=== PATIENT | female | born 1950 | race Caucasian/White ===

== ENCOUNTER 2017-10-15 13:09 | Day surgery (SDC) | payer OTHER, SELFPAY ==
--- NOTE | 2017-10-15 | PATH_ITS ---
[facility] Accession Number: [id number] . 01 Material submitted: . PART A: MID RIGHT COLON POLYP PART B: DISTAL RIGHT COLON POLYP . 02 Diagnosis: A. Mid Right Colon Polyp, Biopsy: Tubular adenoma; negative for high-grade dysplasia. . B. Distal Right Colon Polyp, Biopsy: Superficial portion of colorectal mucosa with no diagnostic abnormality. Additional levels through the block are noncontributory. MRV/10/17/2017 . 02 Electronically signed: . Flordia Tang MD, Pathologist NPI- [id number] . 01 Gross description: . Part A: MID RIGHT COLON POLYP: Received in formalin are multiple fragment(s) of hadley, soft tissue measuring 1.0 x 0.5 x 0.3 cm in aggregate submitted entirely in 1 cassette(s) Part B: DISTAL RIGHT COLON POLYP: Received in formalin is 1 fragment(s) of hadley, soft tissue measuring 0.5 x 0.3 x 0.3 cm submitted entirely in 1 cassette(s) /CKI /CKI . 02 Pathologist provided ICD-10: K63.5 . 02 CPT . 851467, [id number] Performed at: 01 [facility] [address], [place], [place] [id number] MD Vinnie Corbett MD Phone: [phone] Performed at: 02 [facility] [address] [place], [place] [id number] MD Alton Rachel MD Phone: [phone]
[2017-10-15 13:20] VITALS: BP 143/81; PULSE 68; RESP 16; TEMP 36.6; O2SAT 100; BMI 19.7
[2017-10-15] MEDS: SODIUM CHLORIDE 0.9% 1,000 ML 200 ML IV (13:30)
--- NOTE | 2017-10-15 15:01 | PM.OP.1 ---
Operative Date/Time/Diagnoses Date of procedure: 10/15/17 Time of procedure: 15:01 Pre-op diagnosis: Screening Positive fecal immunohistochemical test Post-op diagnosis: same Procedure & Clinicians Procedure: Colonoscopy to the cecum with polypectomy x2 Same procedure as scheduled: Yes Indications: Last colonoscopy approximately 5 years ago Surgeon: Gilda Otto Anesthesia Type: Sedation (Versed 8 mg; fentanyl 175 mcg) Operative Notes Findings: 1. Excellent prep 2. 5 mm polyp just distal to the cecum and the proximal ascending colon removed with cold forceps and retained for pathology 3. 2 mm polyp in the distal ascending colon removed with cold forceps and retained for pathology 4. Mildly tortuous colon 5. Mild diverticulosis limited to the sigmoid region. Few scattered small pockets. 6. Grade 1-2 internal hemorrhoids Closure Type: not applicable Estimated Blood Loss (mL): 2 Procedure in detail: After obtaining informed consent, the patient was brought to the GI suite and placed in the left lateral decubitus position on the examination table. After placement of appropriate monitors, the patient was given incremental doses of Versed and Fentanyl until an appropriate level of sedation was achieved. A time out was held per SCOAP protocol. A digital rectal examination was performed and did not reveal any masses or obstructing lesions. The colonoscope was gently passed into the patient's anus and the entire colon navigated to the level of the cecum with minimal difficulty. Once in the cecum, the scope was withdrawn being sure to go before and beyond all mucosal folds and prominences and get an excellent examination. The findings are noted above. At the level of the rectal vault, the scope was retroflexed and the internal anal canal was examined. The scope was straightened and air aspirated from the colon. The instrument was removed from the patient's body and the procedure was concluded. The patient was allowed to awaken from sedation without difficulty and taken to the post-anesthesia care unit in good condition. Total sedation time 27 min Total withdrawal time 14 min Complications: none Condition: stable Disposition: PACU Plan for aftercare: 1. Discharge to home 2. Plan for next colonoscopy in 3 years due to the size of the most proximal polyp. 3. We will contact you with pathology results and any other recommendations.
[2017-10-15] MEDS: MIDAZOLAM 5 MG/5 ML VIAL IV (15:11)
[2017-10-15] MEDS: fentaNYL 250 MCG/5 ML INJ IV (15:12)
[2017-10-15 15:18] VITALS: BP 122/75; PULSE 71; RESP 16; TEMP 36.1; O2SAT 99
--- NOTE | 2017-10-15 15:22 | PM.HP.1 ---
History of Present Illness Date Patient Seen: 10/15/17 Time Patient Seen: 15:22 Chief complaint: [id number] Narrative: Very pleasant 66-year-old lady who is known to me from my prior practice. She had a colonoscopy about 5 years ago that was normal. She recently had fecal immunohistochemical testing that was positive for blood. For this reason, she has been referred for colonoscopy. She denies any new abdominal pain or changes in her bowel habits. Patient History Family & Social History Family History: Reviewed 10/15/17 by Gilda Otto MD Social History: household members spouse Meds Allergies Allergy/AdvReac Type Severity Reaction Status Date / Time No Known Drug Allergies Allergy Verified 10/15/17 13:20 Review of Systems Review of Systems All systems reviewed & are unremarkable except as noted in HPI and below Exam Vital Signs (past 8 hours): - 10/15/17 13:20 Temperature 98 F Pulse Rate 68 Respiratory Rate 16 Blood Pressure 143/81 H Pulse Oximetry 100 Oxygen Delivery Method Room Air Narrative Exam Narrative: Very pleasant and very healthy lady in no obvious distress HEENT: Normocephalic and atraumatic, pupils equal round react to light accommodation with anicteric sclera Lungs: Clear to auscultation bilaterally Heart: Regular rate and rhythm without murmur rub or gallop Abdomen: Soft, scaphoid, active bowel sounds. Extremities: Warm and well perfused Assessment & Plan Plan: Assessment/Plan Narrative: Very pleasant 66-year-old lady with a recent positive fecal immunohistochemical test. We discussed risks and benefits of colonoscopy the patient expressed desire to complete the procedure today.
== END 2017-10-15 15:25 | disposition home or self-care (01) ==
PROVIDERS: Visit Provider Surgery
PROC: 0DJD8ZZ Inspection of Lower Intestinal Tract, Via Natural or Artificial Opening Endoscopic (ICD-10-PCS; CPT 45378; principal; 2017-10-15 14:00)
DX: K57.30 Diverticulosis of large intestine without perforation or abscess without bleeding (principal); K64.1 Second degree hemorrhoids; D12.0 Benign neoplasm of cecum; D12.2 Benign neoplasm of ascending colon
CPT/HCPCS: 45380; 99152; 99153; J2250; J3010

== ENCOUNTER → 2023-03-02 13:50 | Outpatient (CLI) | payer OTHER, SELFPAY ==
--- NOTE | 2023-03-02 | DI.ECHO.S_ITS ---
[facility] +---------+ : : [address] : : : : [id number] : : : : Phone: [phone]+ Echocardiogram Report + + :Name: DYLAN COOPER Study Date: 03/02/2023 Height: 67 in : :[facility] ReadingLocation: Weight: 145 lb : : Gender: Female BSA: 1.8 m2 : :: 1950 Age: 72 yrs BP: 169/97 mmHg: :Reason For Study: MITRAL VALVE INSUFFICIENCY : :Ordering Physician: JIGAR LOPEZ Performed By: Yamilex Best : :Referring: JIGAR LOPEZ : + + Interpretation Summary Diastolic function could not be accurately assessed due to contradictory data. The left atrium is mildly dilated. The right ventricle is normal in size and function. There is mild mitral regurgitation. There is moderate aortic regurgitation. There is trace tricuspid regurgitation. Pulmonary artery pressures cannot be estimated because of the lack of a measurable TR jet velocity but the IVC suggests a CVP of around 3 mmHg. The ascending aorta measures 5.1 cm, indexed to BSA 2.83 cm/m^2. Recommend CTA or MRA chest and referral to CT surgery. Result discussed with ZOIE Rogers with [facility] [place]call for ordering provider. Procedure: A two-dimensional transthoracic echocardiogram with color flow and Doppler was performed. The study quality was technically adequate. There is no prior echocardiogram noted for this patient. The patient was in sinus rhythm with heart rates between 61-75 bpm during the exam. Left Ventricle: The left ventricle is normal in size and wall thickness. The ejection fraction is estimated to be 55-60%. Diastolic function could not be accurately assessed due to contradictory data. Right Ventricle: The right ventricle is normal in size and function. Atria: The left atrium is mildly dilated. Right atrial size is normal. There is no Doppler evidence for an interatrial shunt. Mitral Valve: The mitral valve is normal. There is mild mitral regurgitation. Aortic Valve: The aortic valve is trileaflet. The aortic valve opens well. There is no aortic valve stenosis. There is moderate aortic regurgitation. Tricuspid Valve: The tricuspid valve is normal in structure and function. There is trace tricuspid regurgitation. Pulmonary artery pressures cannot be estimated because of the lack of a measurable TR jet velocity but the IVC suggests a CVP of around 3 mmHg. Pulmonic Valve: The pulmonic valve leaflets are thin and pliable; valve motion is normal. There is no pulmonic valvular regurgitation. Great Vessels: The aortic root is moderately dilated. The ascending aorta is severely enlarged. The ascending aorta measures 5.1 cm, indexed to BSA 2.83 cm/m^2. Recommend CTA or MRA chest and referral to CT surgery. The IVC is of normal diameter and collapses greater than 50% with a sniff. This suggests a low right atrial pressure of 3 mm Hg. Pericardium/ Pleura There is no pericardial effusion. There is no pleural effusion. MMode/2D Measurements & Calculations LVIDd: 5.2 cm LVOT diam: 2.3 cm LVIDs: 3.6 cm Ao root diam: 4.6 cm FS: 31.5 % asc Aorta Diam: 5.0 cm EPSS: 0.94 cm Ao Arch Diam (Prox Trans): 2.5 cm IVSd: 0.88 cm LVPWd: 0.88 cm LV whitaker. diameter/BSA (cm/m^2): 3.0 LV sys. diameter/BSA (cm/m^2): 2.0 LA A2 area: 23.1 cm2 RA long axis: 5.4 cm LA A4 area: 19.7 cm2 RA area: 16.7 cm2 LA length (vol): 5.3 cm RA vol: 43.9 ml LA vol: 72.5 ml RA : 24.9 ml/m2 LA vol index: 41.1 ml/m2 IVC diam: 0.79 cm RVD1 (basal): 3.2 cm RVD2 (mid): 2.4 cm TAPSE: 2.5 cm Doppler Measurements & Calculations Ao V2 max: 152.5 cm/sec LVOT Max Nikhil: 91.2 cm/sec Ao V2 mean: 106.8 cm/sec LV V1 max P.3 mmHg Ao max P.3 mmHg LV V1 VTI: 20.8 cm Ao mean P.1 mmHg LANETTE(I,D): 2.9 cm2 Ao V2 VTI: 30.5 cm LANETTE(V,D): 2.5 cm2 sev ratio: 0.68 LANETTE indexed to BSA (cm^2/m^2): 1.6 AI P1/2t: 632.0 msec AI dec slope: 211.1 cm/sec2 MV E max nikhil: 51.4 cm/sec TR max nikhil: 209.8 cm/sec MV A max nikhil: 88.6 cm/sec TR max P.6 mmHg MV E/A: 0.58 PA V2 max: 80.2 cm/sec Med Peak E' Nikhil: 3.6 cm/sec PA V2 mean: 62.6 cm/sec E/E' med: 14.3 PA mean P.7 mmHg Lat Peak E' Nikhil: 6.0 cm/sec PA pr(Accel): 25.9 mmHg E/E' lat: 8.6 E/e' average: 11.5 MV dec time: 0.23 sec SV(LVOT): 87.4 ml Reading Physician:09:26 PM
== END ==
LOC: ECHO 13:51
PROVIDERS: PCP Physician Assistant; Referring Provider Registered Nurse; Visit Provider Registered Nurse
DX: I08.0 Rheumatic disorders of both mitral and aortic valves (principal); I77.810 Thoracic aortic ectasia; I77.89 Other specified disorders of arteries and arterioles
CPT/HCPCS: 93306